=== PATIENT | male | born 1955 | race Caucasian/White ===

== ENCOUNTER 2016-11-10 17:05 | Emergency (ER) | payer OTHER ==
[~2016-11-10] VITALS: Ht 167.6 cm; Wt 61.2 kg
[2016-11-10] MEDS ORDERED: ASPI325T28 PO (17:19)
[2016-11-10] MEDS ORDERED: LYRI100C10 (17:19)
[2016-11-10] MEDS ORDERED: WARF-23 (17:19)
[2016-11-10] MEDS ORDERED: PERC5TAB6 PO (19:33)
[2016-11-10 19:37] VITALS: BP 148/97
--- NOTE | 2016-11-10 19:40 | REP ---
LEFT RIB SERIES: Four views of the left ribs are performed and demonstrate no fracture or bone lesion. An accompanying view of the chest demonstrates no acute infiltrate. Heart is normal in size. IMPRESSION: Negative left rib series. Signed by Ander Hammer MD 11/10/2016 08:24 P
== END 2016-11-10 19:49 | disposition home or self-care (01) ==
LOC: M ED 18:11
DX: S20.212A Contusion of left front wall of thorax, initial encounter (principal); F17.210 Nicotine dependence, cigarettes, uncomplicated; W50.0XXA Accidental hit or strike by another person, initial encounter; Y92.89 Other specified places as the place of occurrence of the external cause; Y93.66 Activity, soccer; Y99.9 Unspecified external cause status